=== PATIENT | male | born 1975 | race Caucasian/White ===

== ENCOUNTER 2022-03-26 14:14 | Outpatient (CLI) | payer BC | END 2022-03-26 14:15 | disposition home or self-care (01) | LOC: CSHMRI 14:14 | PROVIDERS: ATTEND Internal Medicine | DX: C04.9 Malignant neoplasm of floor of mouth, unspecified (principal); C76.0 Malignant neoplasm of head, face and neck; Z98.890 Other specified postprocedural states; M79.89 Other specified soft tissue disorders; R93.7 Abnormal findings on diagnostic imaging of other parts of musculoskeletal system | CPT/HCPCS: 70543 ==